=== PATIENT | male | born 1975 | race Caucasian/White ===

== ENCOUNTER 2020-12-24 09:59 | Emergency (ER) | payer MEDICAID, SELFPAY ==
[2020-12-24 10:07] VITALS: BP 119/85; PULSE 77; RESP 16; TEMP 37; O2SAT 97; BMI 29.9
[2020-12-24 10:21] VITALS: BP 121/81; PULSE 78; RESP 18; O2SAT 96
--- NOTE | 2020-12-24 10:23 | HMH.EDGENADL ---
ED Disposition Clinical Impression: Viral upper respiratory infection Disposition: Home, Self-Care Condition on Discharge: Good Instructions: DI for Viral Upper Respiratory Infection -- Adult Additional Instructions: Quarantine yourself until you obtain your COVID-19 test result. You will be called with the result. Additional instructions for UPPER RESPIRATORY INFECTION: See your physician if not improving in 3-4 days or if worsening. Rest and drink plenty of fluids. Return immediately if you have an uncontrollable fever greater than 104 degrees, difficulty breathing or shortness of breath, persistent vomiting, or inability to swallow. Referrals: Thom Mullen MD [Primary Care Provider] - - Critical Care Critical Care Time: No Attestation: On 12/24/20, the high probability of a clinically significant, sudden or life threatening deterioration of the following system(s) required my full and direct attention, intervention and personal management. The time I documented below is in addition to time spent performing reported procedures but includes the following listed in this critical care notation. Medical Decision Making - Jomar Inquiry Pt receiving controlled substance: No Vital Signs: 12/24/20 10:07 12/24/20 10:21 Temperature 98.6 F Temperature Source Oral Pulse Rate [Right] 77 78 Respiratory Rate 16 18 Blood Pressure [Right Arm] 119/85 121/81 Blood Pressure Mean [Right Arm] 96 94 Blood Pressure Source [Right Arm] Automatic Cuff Blood Pressure Position [Right Arm] Sitting 02 Sat by Pulse Oximetry 97 96 Oxygen Delivery Method Room Air - Lab Data Lab Results 12/24/20 10:30: Group A Strep Rapid Negative Orders (Tests/Meds): ORDERS Category Date Time Status Covid-19 Nasal PCR ([facility]) Routine Lab 12/24/20 10:24 Ordered Strep Screen Confirmation Stat Micro 12/24/20 10:30 Received General Adult HPI - General Chief complaint: Upper Respiratory Infection Stated complaint: Nasal drainage; sore throat Time Seen by Provider: 12/24/20 10:23 Mode of Arrival: Ambulatory Limitations: No Limitations Description of Symptoms (Recalled from ER Triage Doc. by RN): pt presents with a sore throat, nonproductive cough, CAMPO and fatigue. pt was febrile earlier this am but toop ibprofen and is now 98.6 orally. - History of Present Illness HPI narrative: 3-day history of a sore throat, low-grade fever, postnasal drip. He says he only coughs due to the postnasal drip. Mild runny nose. No known exposures. He feels he likely has strep. Denies any exposure to Covid 19. States he does not want COVID-19 test. However, he says he will consent to one if his strep test is negative. - Related Data Home Medications Medication Instructions Recorded Confirmed No Known Home Medications 12/24/20 12/24/20 Allergies Allergy/AdvReac Type Severity Reaction Status Date / Time No Known Allergies Allergy Verified 12/24/20 10:14 [facility] History - Hepatitis A Screen Drug use history?: No High risk sexual behaviors?: No History of sexually transmitted infection?: No Currently employed?: No Childcare worker?: No Do you have indoor plumbing?: Yes Do you have electricity?: Yes Attestation statement:: This patient has been screened for Hepatitis A risk factors. I have reviewed the patient's past medical history: Yes - Social History Smoking Status: Unknown if ever smoked Alcohol Intake: never Occupational Status: employed ROS Obtained: Yes Systems reviewed as appropriate & no additional complaints - Constitutional Constitutional: Denies fever(s) - ENT Ears, Nose, Mouth, and Throat: Reports nasal discharge, Reports post nasal drip, Reports sore throat - Respiratory Respiratory: Reports as per HPI, Reports cough - Gastrointestinal Gastrointestingal: Denies: diarrhea, vomiting Physical Exam - General General appearance: alert, in no apparent distress - Head Head exam: atr
[2020-12-24 10:49] LABS: Strep Scrn Group A (Rapid) Negative (Negative)
[2020-12-24 11:07] VITALS: BP 115/78; PULSE 72; RESP 13; TEMP 36.6
--- NOTE | 2020-12-24 13:21 | PC.NURSE ---
called pt at this time to notify him that covid test result is positive.
== END 2020-12-24 11:12 | disposition home or self-care (01) ==
PROVIDERS: Emergency Provider Emergency Medicine; PCP Family Medicine
DX: U07.1 COVID-19 (principal)
CPT/HCPCS: 87430; 99283; U0003

== ENCOUNTER 2020-12-26 16:15 | Emergency (ER) | payer MEDICAID, SELFPAY ==
[2020-12-26 16:30] VITALS: BP 118/83; PULSE 78; RESP 18; TEMP 37.2; O2SAT 98; BMI 30.1
[2020-12-26 16:36] VITALS: BP 129/89; PULSE 80; RESP 18; TEMP 36.8; O2SAT 99; BMI 29.9
--- NOTE | 2020-12-26 16:53 | HMH.EDUTC ---
[facility] [place] Disposition Clinical Impression: Strep throat Disposition: Home, Self-Care Condition on Discharge: Good Instructions: DI for Strep Throat, Strep Throat, Strep Throat (Alternative Therapy), DI for COVID-19 (Suspected or Confirmed ), Coronavirus Disease 2019, Azithromycin Additional Instructions: *Monitor Temp, Over the counter Motrin or Tylenol as directed/as needed Tylenol every 4 hours and Motrin every 6 hours (as long as your family doctor has told you that you can take it) for fever or pain. and straight to ER if unable to lower temp less than 101.0 after medication given *Warm salt water gargles may help to soothe the throat *Throat Lozenges *Warm fluids like tea with honey may help to soothe the throat *Sleep elevated *Humidifier/Vaporizer *change toothbrush and toothpaste 24-48 hours after starting to take antibiotics so you do not reinfect yourself Monitor Temp. Tylenol and/or Ibuprofen as needed. ER if fever is no less than 101 despite alternating Tylenol and Ibuprofen * Encourage fluids, water, Gatorade, powerade, pedialyte if infant/toddler/or child *Cold fluids, popsicles and ice cream may feel good on his throat Follow up IMMEDIATELY for new or worsening symptoms or no Noticeable improvement over the next 48-72 hours. 911 for difficulty breathing or swallowing Prescriptions: Azithromycin [Z-Khanh 250mg Tab] 250 mg PO DIRECTED #6 tab Transmission Status: Pending to [id number] Referrals: Thom Mullen MD [Primary Care Provider] - As needed Time of Disposition: 17:02 Medical Decision Making - Jomar Inquiry Pt receiving controlled substance: No Jomar was queried for this patient: No Vital Signs: 12/26/20 16:30 12/26/20 16:36 Temperature 98.9 F 98.2 F Temperature Source Oral Oral Pulse Rate [Right Radial] 78 80 Respiratory Rate 18 18 Blood Pressure [Right Arm] 118/83 129/89 Blood Pressure Mean [Right Arm] 94 102 Blood Pressure Source [Right Arm] Automatic Cuff Automatic Cuff Blood Pressure Position [Right Arm] Sitting Sitting 02 Sat by Pulse Oximetry 98 99 Oxygen Delivery Method Room Air Room Air - Lab Data Lab results reviewed: Yes: I reviewed the patient's lab results. [facility] [place] HPI - General Stated complaint: Covid Possive(12/24) throat can't swallow Time Seen by Provider: 12/26/20 16:53 Mode of Arrival: Ambulatory Source of Information: Patient Limitations: No Limitations Description of Symptoms (Recalled from Triage Doc. by RN): Sorethroat - History of Present Illness Provider Complaint: Patient states that he tested positive for COVID on 12/24 State that even though has COVID has had worsening of sore throat and hurts when he swallows States that today it was worse and was concerned he may have strep throat so he came in to get checked - Related Data Previous Rx's Medication Instructions Recorded Azithromycin [Z-Hkanh 250mg Tab] 250 mg PO DIRECTED #6 tab 12/26/20 Allergies Allergy/AdvReac Type Severity Reaction Status Date / Time No Known Allergies Allergy Verified 12/24/20 10:14 - Worker's Comp Is this a Worker's Comp case?: No [facility] History - Hepatitis A Screen Drug use history?: No High risk sexual behaviors?: No History of sexually transmitted infection?: No Currently employed?: No Childcare worker?: No Do you have indoor plumbing?: Yes Do you have electricity?: Yes Attestation statement:: This patient has been screened for Hepatitis A risk factors. I have reviewed the patient's past medical history: Yes - Social History Smoking Status: Unknown if ever smoked Alcohol Intake: never Occupational Status: other ROS Obtained: Yes All systems reviewed & no additional complaints, Yes Systems reviewed as appropriate & no additional complaints - ENT Ears, Nose, Mouth, and Throat: Reports sore throat Physical Exam - General General appearance: alert, in no apparent distress - Expanded ENT Exam Throat exam: Present: tonsillar
[2020-12-26 17:06] LABS: UTC Strep Screen (Rapid) Positive (Negative)
[2020-12-26 17:26] VITALS: BP 129/89; PULSE 80; RESP 18; TEMP 36.8; O2SAT 99
== END 2020-12-26 17:30 | disposition home or self-care (01) ==
PROVIDERS: Emergency Provider Nurse Practitioner; PCP Family Medicine
DX: J02.0 Streptococcal pharyngitis (principal); U07.1 COVID-19
CPT/HCPCS: 87880; 99202; G0463

== ENCOUNTER → 2023-09-16 23:00 | Outpatient (CLI) | payer MEDICAID, SELFPAY ==
[2023-09-16 18:21] LABS: Adenovirus,PCR Not Detected (NotDetected); Bordetella Pertussis Not Detected (NotDetected); Chlamydophila Pneumoniae, PCR Not Detected (NotDetected); Coronavirus 19, PCR Not Detected (NotDetected); Coronavirus 229E Not Detected (NotDetected); Coronavirus NL63 Not Detected (NotDetected); Coronavirus OC43 Not Detected (NotDetected); Coronovirus HKU1,PCR Not Detected (NotDetected); Human Metapneumovirus Not Detected (NotDetected); Influenza A, PCR Not Detected (NotDetected); Influenza AH1, 2009 Not Detected (NotDetected); Influenza AH1, PCR Not Detected (NotDetected); Influenza AH3,PCR Not Detected (NotDetected); Influenza B, PCR Not Detected (NotDetected); Parainfluenza 1, PCR Not Detected (NotDetected); Parainfluenza 2, PCR Not Detected (NotDetected); Parainfluenza 3, PCR Not Detected (NotDetected); Parainfluenza 4, PCR Not Detected (NotDetected); Respiratory Syncytial Virus Not Detected (NotDetected); Rhinovirus/Enterovirus Not Detected (NotDetected)
[2023-09-21 12:27] LABS: Mycoplasma Pneumoniae, PCR Not Detected (NotDetected)
== END ==
LOC: LAB.DROPOF 09-17 00:22
PROVIDERS: PCP Student in an Organized Health Care Education/Training Program; Visit Provider Student in an Organized Health Care Education/Training Program
DX: R05.9 Cough, unspecified (principal)
CPT/HCPCS: 87581; 87632; 87635; 87798